=== PATIENT | female | born 1965 | race Caucasian/White ===

== ENCOUNTER 2023-12-18 23:54 | Emergency (ER) | payer OTHER, SELFPAY ==
[2023-12-18 23:55] VITALS: BP 154/108; PULSE 131; RESP 15; TEMP 36.6; O2SAT 97; BMI 30.4
--- NOTE | 2023-12-19 00:15 | EKG12_ITS ---
Test Reason : SOB Blood Pressure : / mmHG Vent. Rate : 131 BPM Atrial Rate : 131 BPM P-R Int : 154 ms QRS Dur : 082 ms QT Int : 286 ms P-R-T Axes : 061 077 027 degrees QTc Int : 422 ms Sinus tachycardia Low voltage QRS Borderline ECG Confirmed by MALLORIE FLORES MD ([id number]), associate entertainment editor JUSTICE TEMPLETON ([id number]) on 12/20/2023 9:56:18 AM Referred By: SAVANNAH Confirmed By:MALLORIE FLORES MD
[2023-12-19 00:33] LABS: Absolute Lymphocyte Count 2.73 X10^3/uL (0.83-4.51); Absolute Neutrophil Count 4.5 X10^3/uL (2.0-7.7); Basophil# 0.07 X10^3/uL; Basophil% 0.8 % (0-1); Eosinophil# 0.19 X10^3/uL; Eosinophils% 2.3 % (0-5); Hematocrit 35.8 % (37-47); Hemoglobin 11.3 g/dL (12.0-15.0); Lymphocyte # 2.73 X10^3/ul (0.83-4.51); Lymphocyte % 32.4 % (19-41); Mean Corp Hgb Conc 31.6 g/dL (32-36); Mean Corpuscular Hgb 25.8 pg (27.0-32.0); Mean Corpuscular Volume 81.7 fL (81-99); Monocyte# 0.93 X10^3/uL; NRBC Flagged by Analyzer 0 % (0-5); Neutrophil # 4.45 X10^3/uL (2.7-7.7); Neutrophil % 52.9 % (47-70); Platelet Count 255 K/mm3 (150-450); RBC Distribution Width CV 15.4 % (11.6-14.6); RBC Distribution Width SD 46.3 fl (35.1-43.9); Red Blood Count 4.38 M/mm3 (4.2-5.4); White Blood Count 8.4 K/mm3 (4.4-11.0)
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
--- NOTE | 2023-12-19 00:39 | EDS_ITS ---
HPI History of Present Illness Chief Complaint: Shortness of Breath Informant: patient and spouse/S.O. Narrative Narrative: Brought in by EMS. Sudden dyspnea palpitations 9 PM while walking home from her son's. No chest pains. No cough. Recent right proximal shoulder fracture that over 2 weeks ago. She is followed by Dr. Wilder. Has planned upcoming surgery. No history of PE or DVT. No history of dysrhythmias. No recent vomiting diarrhea. History of prediabetes. No history of kidney injury. She states she has been mobile with her shoulder fracture. EMS EKG with sinus tachycardia 130s. No dysrhythmia. PE Risk Factors: Negative for Prior DVT or PE, Recent surgery or Recent travel Prior similar symptoms: No PFSH PFSH Medical History Shoulder fracture, right Hypercholesteremia Diabetes Allergy/AdvReac Type Severity Reaction Status Date / Time No Known Allergies Allergy Verified 12/18/23 23:55 Social History Smoking Status: Never smoker ROS ROS ED Constitutional Constitutional ED: Denies chills, fever(s) or sweats Eyes Eyes: Denies change in vision ENT ENT ED: Denies dysphagia or sore throat Cardiovascular Cardiovascular: Reports palpitations and racing heartbeat; Denies chest pain or leg edema Respiratory/Chest Respiratory/Chest: Reports dyspnea; Denies cough or dyspnea on exertion Gastrointestinal Gastrointestinal: Denies abdominal pain, diarrhea, nausea or vomiting Genitourinary Genitourinary ED: Denies dysuria, hematuria or urinary frequency Musculoskeletal Musculoskeletal: Denies back pain, extremity pain or neck pain Integumentary Denies rash or wounds Neurologic Neurologic: Denies headache(s), paresthesias or weakness EXAM Physical Exam Const Vital Signs: 12/18/23 23:55 12/19/23 00:02 12/19/23 00:51 Temperature 98 F Temperature Source Oral Pulse Rate 131 H Respiratory Rate 15 Respiratory Effort Labored Respiratory Depth Deep Respiratory Pattern Normal Blood Pressure 154/108 H Blood Pressure Mean 123 Pulse Ox 97 Oxygen Delivery Method Room Air Room Air Room Air 12/19/23 01:55 12/19/23 03:00 12/19/23 03:13 Temperature 98.3 F Temperature Source Pulse Rate 132 H 137 H 140 H Respiratory Rate 18 18 17 Respiratory Effort Respiratory Depth Respiratory Pattern Blood Pressure 123/98 H 144/105 H 144/105 H Blood Pressure Mean 106 118 118 Pulse Ox 98 97 98 Oxygen Delivery Method Room Air Room Air Positive well nourished and well developed General Appearance ED: well developed and NAD HEENT Reports moist mucous membranes normocephalic and atraumatic Eyes EOMs intact bilaterally and conjunctivae normal General Eye ED: Yes normal appearance of both eyes Neck no lymphadenopathy and supple General: Negative for tenderness Chest Wall Chest: Negative for tenderness Resp normal respiratory effort and normal air movement Effort and Inspection: symmetric chest movement; Negative for respiratory distress Cardio regular rhythm and no murmurs Rate: tachycardic Peripheral Pulses: pulses 2+ throughout GI normal to inspection, nondistended, normoactive bowel sounds and non-tender Palpation: Negative for guarding or rebound tenderness present Back/Spine no CVA tenderness and no thoracic nor lumbar tenderness Extremity Extremity Narrative: Right shoulder sling and swath, soft compartments. General Extremety ED: Negative for edema or tenderness General Extremity: Negative for edema Neuro oriented x3 and no sensory deficits noted Sensorium / Orientation: awake and alert Skin no rashes or lesions noted and no wounds MDM MDM MDM Narrative Medical decision making narrative: Interventions / MDM: Differential diagnosis: Pulmonary embolism, heart strain, elevated troponin Diagnosis considered but do not suspect: CT secondary to strain from pulmonary embolism My EKG interpretation: Sinus rate of 131, no ST changes T wave version leads III. Nonspecific. QTc 422. Imaging independently reviewed and interpreted by myself: CT angiogram chest: Saddle PE with right heart strain also read by radiology. External documents reviewed: N/A Test considered but not ordered:N/A ED course: Patient tachycardic narrow complex no dysrhythmia. Pulse ox 97% room air. Reports increasing dyspnea. Recent shoulder fracture, no chest pains. Will start fluids, laboratory studies obtained. PE high on the differential therefore CTA chest obtained for further rule out. Troponin elevated at 556. She had no chest pain EKG sinus tachycardia. She was started on aspirin heparin. CT scan was obtained on my review had concerns for saddle PE right heart strain. She was tachycardic feeling more dyspneic however not hypoxic. With large saddle PE heart strain elevated troponin and recent shoulder fracture, did not feel TPA or TNK should be administered unless emergently. However I do feel she may be a candidate for thrombectomy which is not offered here. 0150: I reached out to transfer center [facility] Spoke with gold miner blasting Dr. Kimbrough he agrees. Agrees with heparin being started. This was discussed with patient and significant other. Transport being made to get her to the ICU for evaluation and intervention as needed. Repeat troponin 916. BNP at 7.4. Likely all strain from her PE. Patient was transported with no complications in the ED. Re-evaluation: stable Disposition discussed with patient/family/significant other: Patient and significant other Case discussed with consulting clinician: Entry Level Financial Analyst [facility] This note was generated with [employer] dictation software. It may contain incorrect words, spelling, and punctuation that were not noted in checking the note before signing. Lab Data Labs: Laboratory Results - last 24 hr 12/19/23 12/19/23 00:07 02:14 WBC 8.4 RBC 4.38 Hgb 11.3 L Hct 35.8 L MCV 81.7 MCH 25.8 L MCHC 31.6 L RDW Std Deviation 46.3 H RDW Coeff of Stefany 15.4 H Plt Count 255 MPV 9.0 Immature Gran % (Auto) 0.600 Neut % (Auto) 52.9 Lymph % (Auto) 32.4 [place] % (Auto) 11.0 H Eos % (Auto) 2.3 Baso % (Auto) 0.8 Absolute Neuts (auto) 4.5 Absolute Lymphs (auto) 2.73 Nucleated RBC % 0 PT 13.4 INR 1.0 APTT 27.0 Sodium 139 Potassium 3.8 Chloride 108 H Carbon Dioxide 24.0 Anion Gap 7 BUN 25 H Creatinine 1.08 H Estim Creat Clear Calc 57.57 Est GFR (MDRD) Af Amer 67 Est GFR (MDRD) Non-Af 55 L BUN/Creatinine Ratio 23.1 H Glucose 164 H Calcium 8.9 Troponin I High Sens 556 H* 916 H* B-Natriuretic Peptide 7.4 Radiography Diagnostic Testing: Clinical Impression(s) from Imaging Studies Chest CTA 12/19/23 01:11 IMPRESSION: Multiple bilateral large pulmonary emboli with saddle-shaped embolus in the main pulmonary artery. There is evidence of right heart strain . N.B. : The above Results were Read Back by Eli Moeller MD to Rafat Le , DO, and understanding confirmed on 12/19/2023 02:01:45 (ET). Electronically Signed: Eli Moeller MD at 1:59 EDT , Critical Care Time Critical Care Time: Yes Critical care time (excluding procedures): 30-74 minutes, Discussing w/Patient &/or Family/Feed Mill Supervisor, Discussing w/Consultants, Arranging Admission or Transfer, Performing Direct Patient Care at Bedside and - (40 minutes) Discharge Plan Triage Chief Complaint: Shortness of Breath ED Provider: Rafat Carias Dx/Rx/DC Orders Clinical Impression: Acute saddle pulmonary embolus, History of fracture of right shoulder, Hx of sinus tachycardia, Elevated troponin Primary Care Provider: Elva Claudoi NP Referrals: Elva Claudio LABORATORY GENETICIST, LABORATORY GENETICIST-C [Primary Care Provider] - Print Language: Citizen Of [place] Disposition Disposition: Acute Care Hospital Discharge Location: [facility] Discharge Date/Time: 12/19/23 03:44
[2023-12-19 00:42] LABS: Prothrombin Time (Protime)PT. 13.4 SECONDS (11.7-14.9)
[2023-12-19] MEDS: 0.9% Normal Saline (500mL Bag) 500 ML 1000 ML IV (00:49)
[2023-12-19 00:54] LABS: BNP,B-Type NATRIURETIC PEPTIDE 7.4 pg/mL (0-100)
[2023-12-19 01:06] LABS: Anion Gap 7 (5-15); BUN 25 mg/dL (7-18); BUN/Creat Ratio 23.1 RATIO (10-20); Calcium,Total 8.9 mg/dL (8.5-10.1); Chloride 108 mmol/L (98-107); Creatinine, Serum 1.08 mg/dL (0.55-1.02); EST Glomerular Filtration Rate 55 mL/min (>60); Est Glom Filt Rate - Afr Amer 67 mL/min (>60); Estimated Creatinine Clearance 57.57 ml/min; Glucose 164 mg/dL (74-106); Potassium 3.8 mmol/L (3.5-5.1); Sodium Level 139 mmol/L (136-145); Troponin-I HS (w/2H Reflex) 556 pg/mL (3.0-54.0)
--- NOTE | 2023-12-19 01:11 | CT_ITS ---
STUDY: CTA CHEST REASON FOR EXAM: Female, 58 years old. dyspnea -- r/o PE RADIATION DOSAGE (If Supplied By Facility): CTDIvol = ( 26.44 ) mGy, DLP = ( 528.96 ) mGycm TECHNIQUE: The examination was performed with the intravenous administration of IV 100mL Isovue-370. Post-processing of the angiographic images was performed, with multiplanar reformation and 3D reconstruction. The protocol utilizes one or more of the following dose reduction techniques: automated exposure control, adjustment of mA and/or kV according to patient size,and/or use of iterative reconstruction technique. COMPARISON: No relevant prior comparison study available FINDINGS: Multiple bilateral large pulmonary emboli with saddle-shaped embolus in the main pulmonary artery. There is evidence of right heart strain . Normal thoracic aorta and visualized great vessels. There is no demonstrated aortic dissection. Normal heart and pericardium. Normal mediastinum. Normal hilar regions. Normal visualized trachea and bronchi. The lungs are well expanded. Normal pulmonary parenchyma. Normal pleura. Normal chest wall structures. Normal osseous structures. Normal visualized upper abdomen. CT/CTA Chest W/WO Contrast IMPRESSION: Multiple bilateral large pulmonary emboli with saddle-shaped embolus in the main pulmonary artery. There is evidence of right heart strain . N.B. : The above Results were Read Back by Eli Moeller MD to Rafat Carias DO, and understanding confirmed on 12/19/2023 02:01:45 (ET). Electronically Signed: Eli Moeller MD at 1:59 EDT ,
[2023-12-19] MEDS: HEPARIN/D5w 25,000 UNITS 25,000 UNITS/250 ML IV.SOLN. 10 UNITS CONT INF (01:45)
[2023-12-19] MEDS: Heparin Injection (Vial) 5,000 UNIT/ML VIAL 4000 UNIT IV (01:46)
[2023-12-19] MEDS: Aspirin 81 MG TAB.CHEW 324 MG PO (01:46)
[2023-12-19 01:55] VITALS: BP 123/98; PULSE 132; RESP 18; O2SAT 98
[2023-12-19 02:30] LABS: Reflex Troponin-HS? (from REC) Y
[2023-12-19 03:00] VITALS: BP 144/105; PULSE 137; RESP 18; O2SAT 97
[2023-12-19 03:11] LABS: Troponin-I HS 916 pg/mL (3.0-54.0)
[2023-12-19 03:13] VITALS: BP 144/105; PULSE 140; RESP 17; TEMP 36.8; O2SAT 98
== END 2023-12-19 03:44 | disposition short-term general hospital (02) ==
PROVIDERS: Emergency Provider Emergency Medicine; PCP Nurse Practitioner Family; Visit Provider Emergency Medicine
DX: I26.92 Saddle embolus of pulmonary artery without acute cor pulmonale (principal); E11.9 Type 2 diabetes mellitus without complications; R06.02 Shortness of breath; E78.00 Pure hypercholesterolemia, unspecified; R00.0 Tachycardia, unspecified
CPT/HCPCS: 71275; 80048; 83880; 84484; 85025; 85610; 85730; 93005; 96365; 96366; 96375; 99285; Q9967; A4216

== ENCOUNTER → 2024-05-02 | Outpatient (CLI) | payer OTHER, SELFPAY ==
--- NOTE | 2024-05-02 | FLU_PTH ---
PATIENT: JOHNY YOUNG [facility]: [facility] U#:[id number] AGE/SX: 59/F ROOM: RE05/02/[address]: Dr. Kong Mazariegos MD : 1965 BED: DIS: 05/02/2024 SPEC #: [id number] RECD: 05/02/24 12:20 STATUS: JOHN MARIANN #: [id number] JORDIN: 05/02/24 00:[address]: Kong Mazariegos DEPT: CYTOLOGY RECD BY: Mookie Acosta ENTERED: 05/02/24 12:22 SP TYPE: Fluid OTHR DR: Elva Claudio, PUMP REBUILDER-C Tissues: A - Thyroid gland, NOS B - Thyroid gland, NOS Procedures: Special Stain Group II Surgery Specimen Level IV Cytospin Fluid HEADER OPERATION: Fine needle aspiration of right thyroid nodule PRE-OP DIAGNOSIS: Right thyroid nodule TISSUE SUBMITTED: A- Right interior thyroid nodule fluid for cytology, B- Right interior thyroid nodule slides DIAGNOSIS CYTOLOGY A. Thyroid, right inferior, 2.3 cm, cytology and cell block:Insufficient follicular cells for diagnosisLight mixed inflammationB. Thyroid, right inferior, 2.3 cm, cytology:Follicular lesion with cystic degeneration (see comment) COMMENT The slides show numerous follicular cells often obscured by peripheral blood with cystic degeneration. Many hemosiderin-laden macrophages and cyst lining cells are observed. Because of the possibility that a cyst may arise in a malignant lesion and because this is a TI-RADS 4 or 5 nodule, it is being sent for genetic testing via [facility]. The results will be issued in a separate report.Peter Smith MD, 05/06/2024 CYTOLOGY STUDY Slides are reviewed. CYTOLOGY GROSS A. Received is 30 ml of fluid labeled with the patient's name and and designated per the requisition as Right interior thyroid nodule. Submitted for cytology preparation including cell block. B. Received are 6 smears labeled with the patient's name and designated per the requisition as Right interior thyroid nodule. Submitted for staining. Mr 05/02/2024 CPT: 46073b0,06085, TC:4
== END | disposition home or self-care (01) ==
LOC: LABSPEC 10:26
PROVIDERS: PCP Nurse Practitioner Family; Referring Provider Surgery; Visit Provider Surgery
DX: E04.1 Nontoxic single thyroid nodule (principal)
CPT/HCPCS: 88108; 88305; 88313